=== PATIENT | female | born 1995 | race African-American/Black ===

== ENCOUNTER 2018-01-21 09:31 | Emergency (ER) | payer MEDICAID, OTHER ==
[~2018-01-21] VITALS: Ht 162.6 cm; Wt 97.0 kg
[2018-01-21] MEDS ORDERED: IBUPROFEN 600MG TABLET PO ONE (10:00)
[2018-01-21 14:46] VITALS: BP 124/66
== END 2018-01-21 14:52 | disposition home or self-care (01) ==
LOC: ER 09:47
DX: M25.572 Pain in left ankle and joints of left foot (principal); Z88.6 Allergy status to analgesic agent
CPT/HCPCS: 73610; 81025; 99284